=== PATIENT | male | born 1950 | race Caucasian/White ===

== ENCOUNTER 2024-02-13 16:37 | Emergency (ER) | payer OTHER, SELFPAY ==
[2024-02-13 16:45] VITALS: BP 174/92
--- NOTE | 2024-02-13 17:09 | ED.GENMED ---
History of Present Illness
General
Chief Complaint: Headache
Time Seen by Provider: 02/13/24 17:09
History of Present Illness
History of Present Illness:
TIME OF INITIAL ENCOUNTER:
HPI: The patient presents due to ongoing headache/sinus pressure along with left-sided tinnitus and started taking amoxicillin 3 days ago after PMD given prescription for antibiotic in case his symptoms worsen. Tylenol and Motrin has not helped.
He has rather significant anxiety as well and has been sleeping very poorly. He took half of his 's Ambien last night which helped minimally. He felt nauseated, he was able to eat today.
EXAM:
GENERAL: Well appearing but appears mildly uncomfortable
HEENT: Moist oral mucosa
CARDIOVASCULAR: No murmurs, normal heart rate, regular rhythm, No chest wall tenderness
PULMONARY: No respiratory distress, breath sounds are clear and equal
ABDOMEN: Soft with no peritoneal signs, no tenderness
NEUROLOGIC: Excellent strength all extremities, no coordination deficits
PSYCHIATRIC: Appropriate mental status, normal insight and judgement
EXTREMITIES: Nontender, no edema, moves all extremities equally
SKIN: No rash, no lesions
NUMBER AND COMPLEXITY OF PROBLEMS ADDRESSED AT THE ENCOUNTER
� Chronic conditions affecting care: Hyperlipidemia, BPH, thyroid disease
� Acute Exacerbation and/or Progression of Chronic Illness: This is an acute problem
� Differential Diagnosis includes: Insomnia, anxiety, nonspecific headache, brain mass
AMOUNT AND/OR COMPLEXITY OF DATA TO BE REVIEWED AND ANALYZED
� I performed an independent evaluation of and my interpretation is:
EKG:
CT: CT head shows no acute abnormality
X-rays:
Laboratory Studies:
Other:
� Review of other/old records: I reviewed records�patient has not had brain CT since 2008
� Clinical information was obtained by an independent historian: I spoke to the at bedside
� Prescriptions/Medications Considered but not given: Offered and considered IV medications however the patient declined
� Further testing considered but not performed:
RISK OF COMPLICATIONS AND/OR MORBIDITY OR MORTALITY OF PATIENT MANAGEMENT
� Social determinants of health affecting care: Lives at home
� Discussion with other providers:
� Escalation of care including admission/observation vs risk of discharge considered: As patient has ongoing rather significant symptoms, will obtain CT imaging of the brain.
ANY OTHER UPDATES:
7:20 PM: CT imaging reassuring. He has a nonfocal neurologic examination. Unclear etiology of the patient's headache. Insomnia/anxiety may be a contributing factor. Will give very short course of Xanax but I did inform the patient of the high
addiction potential.
Phy Exam
Physical Exam
Physical Exam:
See HPI
Course
Orders/Labs/Results
Orders:
Orders
02/13/24 17:26
CT Head W/o Iv Contrast Urgent
Comment:
Reason For Exam: new severe MONTERO on L, tinnitus
Vital Signs
Initial and Last Documented VS:
Initial Vital Signs
Temp Pulse Resp BP Pulse Ox
98.1 F 76 16 174/92 98
02/13/24 16:45 02/13/24 16:45 02/13/24 16:45 02/13/24 16:45 02/13/24 16:45
Last Documented Vital Signs
Temp Pulse Resp BP Pulse Ox
98.1 F 60 18 157/81 98
02/13/24 16:45 02/13/24 18:00 02/13/24 18:00 02/13/24 18:00 02/13/24 18:00
*Critical Care Note
Total Time (30-74mins, 75-104mins- exclusive of procedures): Not Applicable
ED Attending Note
-
Portions of this chart may have been created with voice recognition software.� Occasional wrong word or��sound alike� substitutions may have occurred due to the inherent limitations of voice recognition software.
Discharge Plan
Departure
Patient Disposition: Home (Routine Discharge)
Date of Disposition: 02/13/24
Time of Disposition: 19:24
Patient with high blood pressure during this ER visit?: Yes
Discharge Problem:
Headache
Instructions: Headache, Adult (DC), BLOOD PRESSURE
Prescriptions:
New
alprazolam 0.5 mg tablet
0.5 - 1 mg PO HS PRN (Reason: anxiety) Qty: 6 0RF
No Action
tamsulosin 0.4 MG capsule
0.4 mg PO DAILY
Patient Comments:
just started taking thursday 02/08
simvastatin 20 MG tablet
20 mg PO DAILY
levothyroxine [Synthroid] 200 MCG tablet
200 mcg PO DAILY
loratadine 10 MG tablet
10 mg PO .EVERY
Ibuprofen
400 mg PO PRN (Reason: headache)
Referrals:
Juan Uriarte MD [Family Provider] -
Activity Restrictions/Additional Instructions:
I sent a prescription for alprazolam/Xanax to the [facility] at [address] in [place]. CAT scan of the brain is unremarkable. Follow-up your primary care doctor.
Interventions
Interventions:
*Risk Screen - Suicide Last Done: 02/13/24 16:45
*General Assessment Last Done: 02/13/24 18:07
*ED COVID-19 Vaccine History Last Done: 02/13/24 18:07
Discharge Date and Time
Print Language: COMORAN
[2024-02-13 18:00] VITALS: BP 157/81
[2024-02-13 18:08] VITALS: BMI 28.7
== END 2024-02-13 19:55 | disposition home or self-care (01) ==
LOC: EMR 16:37
PROVIDERS: EMERGENCY PHYSICIAN Emergency Medicine; FAMILY PHYSICIAN Family Medicine
DX: R51.9 Headache, unspecified (principal); F41.9 Anxiety disorder, unspecified
CPT/HCPCS: 99284; 70450

== ENCOUNTER → 2024-05-12 13:32 | Outpatient (REF) | payer BC, SELFPAY | LOC: RAD 13:32 | PROVIDERS: ATTENDING PHYSICIAN Pain Medicine Interventional Pain Medicine; FAMILY PHYSICIAN Family Medicine | DX: M54.12 Radiculopathy, cervical region (principal) | CPT/HCPCS: 70491; Q9967 ==

== ENCOUNTER 2024-05-31 06:18 | Day surgery (SDC) | payer BC, SELFPAY | END 2024-05-31 13:32 | disposition home or self-care (01) | LOC: GI 06:18 | PROVIDERS: ATTENDING PHYSICIAN Internal Medicine Gastroenterology | DX: R13.10 Dysphagia, unspecified (principal); R12 Heartburn; K22.89 Other specified disease of esophagus; K20.90 Esophagitis, unspecified without bleeding | CPT/HCPCS: 43239; 88305 ==

== ENCOUNTER 2024-06-13 09:09 | Outpatient (RCR) | payer BC, SELFPAY | END 2024-06-13 23:59 | disposition home or self-care (01) | LOC: RPT 09:09 | PROVIDERS: ATTENDING PHYSICIAN Pain Medicine Interventional Pain Medicine; FAMILY PHYSICIAN Family Medicine | DX: M54.12 Radiculopathy, cervical region (principal); Z73.6 Limitation of activities due to disability | CPT/HCPCS: 97110; 97162 ==

== ENCOUNTER → 2024-06-23 13:12 | Outpatient (REF) | payer BC, SELFPAY | LOC: RAD 13:12 | PROVIDERS: ATTENDING PHYSICIAN Family Medicine | DX: L08.9 Local infection of the skin and subcutaneous tissue, unspecified (principal) | CPT/HCPCS: 70492; Q9967 ==

== ENCOUNTER → 2024-07-10 17:20 | Outpatient (REF) | payer BC, SELFPAY | LOC: MRI 3T 17:20 | PROVIDERS: ATTENDING PHYSICIAN Family Medicine | DX: R22.1 Localized swelling, mass and lump, neck (principal); R25.1 Tremor, unspecified | CPT/HCPCS: 70543; A9575 ==

== ENCOUNTER 2024-08-03 06:19 | Day surgery (SDC) | payer BC, SELFPAY ==
[2024-08-03] VITALS (9 sets, daily range): BP systolic 122–145; BP diastolic 54–76; BMI 27.3
[2024-08-03] MEDS: NORMOSOL-R/PLASMALYTE-A 1000 IV (12:35)
[2024-08-03] MEDS: TYLENOL 1000 MG PO (12:37)
== END 2024-08-03 16:18 | disposition home or self-care (01) ==
LOC: SDS 06:19
PROVIDERS: ATTENDING PHYSICIAN Otolaryngology
DX: K11.20 Sialoadenitis, unspecified (principal); J31.2 Chronic pharyngitis; R13.10 Dysphagia, unspecified
CPT/HCPCS: 42440; 88307; C9250